=== PATIENT | female | born 1975 | race Caucasian/White ===

== ENCOUNTER 2023-11-07 12:42 | Inpatient (IN) | payer MEDICAID ==
[~2023-11-07] VITALS: Ht 160 cm; Wt 64.4 kg
[2023-11-07 13:50] VITALS: BP 114/71; PULSE 95; RESP 18; TEMP 97.8
[2023-11-07 17:41] VITALS: BP 134/76; PULSE 89; RESP 16; TEMP 98.3; O2SAT 100
[2023-11-07] MEDS ORDERED: MAG HYDROX/ALUMINUM HYD/SIMETH ES 30 ML SUSPENSION UDCUP PO PRN (20:30)
[2023-11-07] MEDS ORDERED: NICOTINE POLACRILEX 2 MG LOZENGE PO PRN (20:30)
[2023-11-07] MEDS ORDERED: ALBUTEROL SULFATE HFA 90 MCG/PUFF 8 GM INHALER IH PRN (20:30)
[2023-11-07] MEDS ORDERED: CloNIDine HCL 0.1 MG TABLET PO PRN (20:30)
[2023-11-07] MEDS ORDERED: MAGNESIUM HYDROXIDE SUSPENSION 30 ML UDCUP PO PRN (20:30)
[2023-11-07] MEDS ORDERED: LOPERAMIDE HCL 2 MG CAPSULE PO PRN (20:30)
[2023-11-07] MEDS ORDERED: DOCUSATE SODIUM 100 MG CAPSULE PO PRN (20:30)
[2023-11-07] MEDS ORDERED: GuaiFENesin/D-METHORPHAN [SUGAR-FREE] 200-20MG/10 ML SYRUP UDCUP PO PRN (20:30)
[2023-11-07] MEDS ORDERED: PETROLATUM,WHITE 28 GM JELLY TP PRN (20:30)
[2023-11-07] MEDS ORDERED: ONDANSETRON HCL 4 MG TABLET PO PRN (20:30)
[2023-11-07] MEDS ORDERED: ACETAMINOPHEN 325 MG TABLET PO PRN (20:30)
[2023-11-07 23:51] VITALS: RESP 16; TEMP 97.9
[2023-11-08 10:08] LABS: BASOPHILS % (AUTO) 0.4 % (0.0-2.0); EOSINOPHILS % (AUTO) 1.1 % (1.0-6.0); HEMATOCRIT 39.8 % (36-46); HEMOGLOBIN 13.8 g/dL (12.0-16.0); LYMPHOCYTES # (AUTO) 1.8 K/uL (1.0-4.8); LYMPHOCYTES % (AUTO) 33.2 % (22.0-44.0); MEAN CORPUSCULAR HEMOGLOBIN 31.7 pg (26.0-34.0); MEAN CORPUSCULAR HGB CONC 34.7 G/dL (31.0-37.0); MEAN CORPUSCULAR VOLUME 92 fL (80-100); MONOCYTES # (AUTO) 0.7 K/uL (0.1-1.0); MONOCYTES % (AUTO) 12.3 % (2.0-9.0); NEUTROPHILS # (AUTO) 2.9 K/uL (1.8-7.7); PLATELET COUNT (AUTO) 296 K/uL (150-450); RED BLOOD CELL COUNT(AUTO) 4.35 MIL/uL (4.00-5.20); RED CELL DISTRIBUTION WIDTH 12.1 % (11.5-14.5); WHITE BLOOD COUNT (AUTO) 5.5 K/uL (4.5-11.0)
[2023-11-08 10:18] LABS: HEMOGLOBIN A1C 5.7 % (3.8-5.6)
[2023-11-08 10:40] LABS: ALANINE AMINOTRANSFERASE 29 U/L (12-78); ALBUMIN 3.2 g/dL (3.4-5.0); ALKALINE PHOSPHATASE 63 U/L (46-116); ANION GAP 9 mmol/L (8-16); ASPARTATE AMINOTRANSFERASE 20 U/L (15-37); BILIRUBIN,TOTAL 0.3 mg/dL (0.1-1.0); CALCIUM, TOTAL 8.9 mg/dL (8.8-10.5); CARBON DIOXIDE 29 mmol/L (22-29); CHLORIDE 106 mmol/L (98-107); CHOL/HDL RATIO 4.2 (3.9-5.7); CHOLESTEROL 172 mg/dL (131-200); CREATININE 0.73 mg/dL (0.60-1.30); FREE T4 (FREE THYROXINE) 0.97 ng/dL (0.76-1.46); GLOMERULAR FILTR. RATE CALC > 60 mL/min (>60); GLUCOSE,RANDOM 110 mg/dL (70-110); HCG,QUANTITATIVE 2 mIU/mL (0-6); HDL CHOLESTEROL 41 mg/dL (40-60); LDL CHOL (CALC.) 101 mg/dL (0-130); POTASSIUM 4.1 mmol/L (3.5-5.1); SODIUM SERUM 144 mmol/L (136-145); THYROID STIMULATING HORMONE 0.24 uIU/mL (0.36-3.74); TOTAL PROTEIN, SERUM 6.8 g/dL (6.4-8.2); TRIGLYCERIDES 151 mg/dL (15-150); UREA NITROGEN, BLOOD 14 mg/dL (7-18)
[2023-11-08 10:52] VITALS: BP 105/80; PULSE 93; RESP 17; TEMP 97.4; O2SAT 97
[2023-11-08] MEDS: FLUoxetine HCL 20 MG CAPSULE PO SCH (12:45)
[2023-11-08 17:37] VITALS: BP 110/69; PULSE 64; RESP 18; TEMP 97; O2SAT 97
[2023-11-08] MEDS: OLANZapine 5 MG TABLET PO SCH (20:50)
[2023-11-08 22:20] VITALS: BP 103/61; PULSE 69; RESP 17; TEMP 97.7; O2SAT 98
[2023-11-09 09:30] VITALS: BP 125/78; PULSE 77; RESP 17; TEMP 98; O2SAT 98
[2023-11-09] MEDS: NICOTINE 21 MG/24 HOUR PATCH TD SCH (13:47)
[2023-11-09 20:26] VITALS: BP 129/76; PULSE 74; RESP 17; TEMP 97; O2SAT 100
[2023-11-10 03:07] LABS: HEPATITIS C AB (EIA) Non Reactive (Non Reactive)
[2023-11-10 08:14] VITALS: BP 113/63; PULSE 76; RESP 18; TEMP 97.5; O2SAT 95
[2023-11-10 08:47] LABS: BASOPHILS % (AUTO) 0.7 % (0.0-2.0); HEMATOCRIT 38.2 % (36-46); HEMOGLOBIN 13.1 g/dL (12.0-16.0); LYMPHOCYTES # (AUTO) 1.7 K/uL (1.0-4.8); LYMPHOCYTES % (AUTO) 34.9 % (22.0-44.0); MEAN CORPUSCULAR HEMOGLOBIN 31.4 pg (26.0-34.0); MEAN CORPUSCULAR HGB CONC 34.2 G/dL (31.0-37.0); MEAN CORPUSCULAR VOLUME 92 fL (80-100); MONOCYTES # (AUTO) 0.6 K/uL (0.1-1.0); MONOCYTES % (AUTO) 12.2 % (2.0-9.0); NEUTROPHILS # (AUTO) 2.4 K/uL (1.8-7.7); NEUTROPHILS % (AUTO) 50.2 % (40.0-70.0); PLATELET COUNT (AUTO) 284 K/uL (150-450); RED BLOOD CELL COUNT(AUTO) 4.16 MIL/uL (4.00-5.20); RED CELL DISTRIBUTION WIDTH 12.2 % (11.5-14.5); WHITE BLOOD COUNT (AUTO) 4.8 K/uL (4.5-11.0)
[2023-11-10 09:20] LABS: ALANINE AMINOTRANSFERASE 42 U/L (12-78); ALBUMIN 3.1 g/dL (3.4-5.0); ALKALINE PHOSPHATASE 66 U/L (46-116); ANION GAP 9 mmol/L (8-16); ASPARTATE AMINOTRANSFERASE 24 U/L (15-37); BILIRUBIN,TOTAL 0.3 mg/dL (0.1-1.0); CALCIUM, TOTAL 8.9 mg/dL (8.8-10.5); CARBON DIOXIDE 28 mmol/L (22-29); CHLORIDE 107 mmol/L (98-107); CHOL/HDL RATIO 4.9 (3.9-5.7); CHOLESTEROL 183 mg/dL (131-200); CREATININE 0.71 mg/dL (0.60-1.30); FREE T4 (FREE THYROXINE) 0.73 ng/dL (0.76-1.46); GLOMERULAR FILTR. RATE CALC > 60 mL/min (>60); GLUCOSE,RANDOM 134 mg/dL (70-110); HDL CHOLESTEROL 37 mg/dL (40-60); HEMOGLOBIN A1C 5.7 % (3.8-5.6); LDL CHOL (CALC.) 92 mg/dL (0-130); SODIUM SERUM 144 mmol/L (136-145); THYROID STIMULATING HORMONE 0.63 uIU/mL (0.36-3.74); TOTAL PROTEIN, SERUM 6.5 g/dL (6.4-8.2); TRIGLYCERIDES 272 mg/dL (15-150); UREA NITROGEN, BLOOD 14 mg/dL (7-18)
[2023-11-10 09:31] LABS: APPEARANCE,URINE CLEAR (CLEAR); BILIRUBIN,URINE NEGATIVE (NEGATIVE); COLOR,URINE LIGHT YELLOW (YELLOW); GLUCOSE, URINE (UA) NEGATIVE (NEGATIVE); KETONES,URINE NEGATIVE (NEGATIVE); LEUKOCYTE ESTERASE ,URINE NEGATIVE (NEGATIVE); NITRATE,URINE NEGATIVE (NEGATIVE); OCCULT BLOOD,URINE NEGATIVE (NEGATIVE); PROTEIN,URINE NEGATIVE (NEGATIVE); UROBILINOGEN,URINE <=1.0 mg/dL (<=1.0)
[2023-11-10 20:48] VITALS: BP 112/76; PULSE 69; RESP 17; TEMP 98; O2SAT 99
[2023-11-11 08:21] VITALS: BP 122/67; PULSE 69; RESP 17; TEMP 97.3; O2SAT 100
[2023-11-11 08:41] LABS: ALCOHOL, URINE DRUG SCREEN NEGATIVE (NEGATIVE); AMPHET/METH SCREEN,URINE NEGATIVE (NEGATIVE); BARBITURATE SCREEN, URINE NEGATIVE (NEGATIVE); BENZODIAZEPINES SCREEN,URINE NEGATIVE (NEGATIVE); CANNABINOID SCREEN,URINE POSITIVE (NEGATIVE); COCAINE SCREEN,URINE NEGATIVE (NEGATIVE); METHADONE SCREEN, URINE NEGATIVE (NEGATIVE); OPIATE SCREEN,URINE NEGATIVE (NEGATIVE); PHENCYCLIDINE SCREEN,URINE NEGATIVE (NEGATIVE)
[2023-11-11] MEDS: IBUPROFEN 400 MG TABLET PO PRN (13:18)
[2023-11-11 20:20] VITALS: BP 108/76; PULSE 91; RESP 18; TEMP 97.9; O2SAT 100
[2023-11-12 08:09] VITALS: BP 112/69; PULSE 72; RESP 18; TEMP 97.6; O2SAT 97
[2023-11-12] MEDS: LORazepam 2 MG TABLET PO PRN (12:13)
[2023-11-12] MEDS: OLANZapine 7.5 MG TABLET PO SCH (20:22)
[2023-11-12 20:29] VITALS: BP 154/57; PULSE 79; RESP 17; TEMP 98; O2SAT 98
[2023-11-13 09:04] VITALS: BP 111/62; PULSE 61; RESP 18; TEMP 97.6; O2SAT 97
[2023-11-13] MEDS: FLUoxetine HCL 20 MG CAPSULE PO SCH (09:46)
[2023-11-13 15:45] LABS: TROPONIN I-HIGH SENSITIVITY 6 ng/L (<51)
[2023-11-13] MEDS: HydrOXYzine PAMOATE 25 MG CAPSULE PO SCH (16:21)
[2023-11-13 20:53] VITALS: BP 131/87; PULSE 80; RESP 18; TEMP 98; O2SAT 99
[2023-11-14 10:56] VITALS: BP 113/72; PULSE 78; RESP 17; TEMP 97.9; O2SAT 97
[2023-11-14 20:51] VITALS: BP 144/75; PULSE 95; RESP 20; TEMP 98.1; O2SAT 96
[2023-11-15 08:51] VITALS: BP 120/66; PULSE 76; RESP 18; TEMP 97.7; O2SAT 99
[2023-11-15 17:57] VITALS: BP 127/77; RESP 18; O2SAT 99
[2023-11-15] MEDS: OLANZapine 10 MG TABLET PO SCH (20:38)
[2023-11-15 22:00] VITALS: BP 121/86; PULSE 87; RESP 17; TEMP 97.7; O2SAT 100
[2023-11-16 08:26] VITALS: BP 113/65; PULSE 100; RESP 17; TEMP 98.2; O2SAT 97
[2023-11-16 20:54] VITALS: BP 128/75; PULSE 92; RESP 17; TEMP 98.5; O2SAT 97
[2023-11-16] MEDS: ZOLPIDEM TARTRATE 10 MG TABLET PO PRN (21:22)
[2023-11-17 08:47] VITALS: BP 121/60; PULSE 80; RESP 17; TEMP 98.3; O2SAT 100
[2023-11-17 17:27] VITALS: RESP 18
[2023-11-17 18:28] VITALS: RESP 16
[2023-11-17] MEDS: HALOPERIDOL 5 MG TABLET PO PRN (18:36)
[2023-11-17 20:06] VITALS: BP 125/77; PULSE 93; RESP 20; TEMP 98.1; O2SAT 95
[2023-11-18 09:06] VITALS: BP 102/69; PULSE 86; RESP 17; TEMP 98.7; O2SAT 96
[2023-11-18 14:18] VITALS: RESP 18; O2SAT 96
[2023-11-18 15:18] VITALS: RESP 17; O2SAT 96
[2023-11-18 20:37] VITALS: BP 128/76; PULSE 81; RESP 18; TEMP 96.2; O2SAT 99
[2023-11-19 08:54] VITALS: BP 127/76; PULSE 88; RESP 17; TEMP 97.6; O2SAT 97
[2023-11-19] MEDS: PredniSONE 20 MG TABLET PO ONE (12:56)
[2023-11-19] MEDS: FAMOTIDINE 20 MG TABLET PO ONE (12:56)
[2023-11-19] MEDS: DiphenhydrAMINE HCL 25 MG CAPSULE PO ONE (12:56)
[2023-11-19 20:11] VITALS: BP 131/84; PULSE 98; RESP 17; TEMP 97.8; O2SAT 97
[2023-11-20 08:13] VITALS: BP 122/80; PULSE 88; RESP 16; TEMP 97.2; O2SAT 97
[2023-11-20] MEDS ORDERED: OLAN10TA22 PO (14:01)
[2023-11-20] MEDS ORDERED: FLUO20SO24 PO ×2 (14:02→14:03)
[2023-11-20] MEDS ORDERED: FLUO-341 PO (14:04)
== END 2023-11-20 16:15 | disposition home or self-care (01) | DRG 750 ==
LOC: B2S 14:09
PROVIDERS: ADMIT Psychiatry & Neurology Psychiatry; ATTEND Psychiatry & Neurology Psychiatry
PROC: GZHZZZZ Group Psychotherapy (ICD-10-PCS; principal; 2023-11-08)
DX: F25.1 Schizoaffective disorder, depressive type (principal); R45.851 Suicidal ideations; F10.10 Alcohol abuse, uncomplicated; R00.0 Tachycardia, unspecified; R73.9 Hyperglycemia, unspecified; F41.9 Anxiety disorder, unspecified; F19.10 Other psychoactive substance abuse, uncomplicated; G47.00 Insomnia, unspecified; Z59.00 Homelessness unspecified; Z88.0 Allergy status to penicillin; Z88.5 Allergy status to narcotic agent; Z79.899 Other long term (current) drug therapy
CPT/HCPCS: 80053; 80061; 80307; 81003; 83036; 84439; 84443; 84484; 84702; 85025; 86803; 87340